=== PATIENT | male | born 1950 | race Caucasian/White ===

== ENCOUNTER 2017-11-29 11:08 | Inpatient (IN) | payer OTHER ==
[~2017-11-29] VITALS: Ht 182.9 cm; Wt 108.0 kg
[~2017-11-29 11:08] MED LIST: ACET325 PO; ALBU90OI INH; ALBU90OI61 INH; ASPI325 PO; ASPI81CH PO; AZIT500 PO; BUDE6HFA; Desyrel50 MG; FLUSAL5005 INH; Keflex500 MG PO; METF500 PO; METPRE4DP PO; Mucinex600 MG PO; PANT40 PO; PRED10 PO; Percocet 5-3251 EACH PO; Prednisone10 MG PO; Prednisone20 MG PO; STIOLTO RESPIMAT4 GM IH; TIOT18 IN; TIOT18 INH; Tessalon Perle100 MG PO; Ventolin Soln3 ML INH; Zithromax250 MG PO
[2017-11-29 11:32] LABS: BASOPHILS ABSOLUTE AUTO 0.06 K/mm3 (0.00-0.23); BASOPHILS PERCENT AUTO 0 % (0-2); EOSINOPHILS ABSOLUTE AUTO 0.47 K/mm3 (0.00-0.68); EOSINOPHILS PERCENT AUTO 3 % (0-6); Hematocrit 49.2 % (37.0-53.0); Hemoglobin 15.8 g/dL (13.5-17.5); IMMATURE GRAN ABSOLUTE AUTO 0.12 K/mm3 (0.00-0.10); IMMATURE GRAN PERCENT AUTO 1 % (0-1); LYMPHOCYTES ABSOLUTE AUTO 1.31 K/mm3 (0.84-5.20); LYMPHOCYTES PERCENT AUTO 8 % (21-46); MONOCYTES ABSOLUTE AUTO 1.23 K/mm3 (0.16-1.47); MONOCYTES PERCENT AUTO 7 % (4-13); Mean Corpuscular HGB 28.8 pg (26.0-34.0); Mean Corpuscular HGB Conc 32.1 g/dL (31.5-36.5); Mean Corpuscular Volume 90 fL (80-100); Mean Platelet Volume 9.8 fL (9.1-12.4); NEUTROPHILS ABSOLUTE AUTO 13.55 K/mm3 (1.96-9.15); NEUTROPHILS PERCENT AUTO 81 % (41-73); Platelet Count 199 K/mm3 (150-400); RDW Coefficient Variation 13.6 % (11.7-14.2); RDW Standard Deviation 45.3 fL (35.1-46.3); Red Blood Cell Count 5.48 M/mm3 (4.30-5.90); White Blood Cell Count 16.74 K/mm3 (4.00-11.30)
[2017-11-29 11:50] LABS: PCO2 Arterial 40.9 mmHg (35-45); PO2 Arterial 391 mmHg (80-100); pH Blood Arterial 7.43 (7.35-7.45)
[2017-11-29 11:51] LABS: Anion Gap 8 mmol/L (6-16); Blood Urea Nitrogen 14 mg/dL (8-24); Bun/Creatinine Ratio 11.6 (12.0-20.0); CO2, Blood 26 mmol/L (21-32); Calcium, Blood 8.4 mg/dL (8.5-10.1); Chloride, Blood 101 mmol/L (98-108); Creatinine, Blood 1.21 mg/dL (0.60-1.20); Glomerular Filtration Rate >60 (60-); Glucose, Blood 105 mg/dL (70-99); Potassium, Blood 4.2 mmol/L (3.5-5.5); Sodium, Blood 135 mmol/L (136-145); Troponin I <0.015 ng/mL (0.000-0.040)
[2017-11-29] MEDS ORDERED: BUDE6HFA INH (14:10)
[2017-11-29] MEDS ORDERED: TESTOSTERONE IM (14:11)
[2017-11-29] MEDS ORDERED: AMIT25 PO (14:54)
[2017-11-30 04:04] LABS: BASOPHILS ABSOLUTE AUTO 0.03 K/mm3 (0.00-0.23); BASOPHILS PERCENT AUTO 0 % (0-2); EOSINOPHILS PERCENT AUTO 0 % (0-6); Hematocrit 47.9 % (37.0-53.0); Hemoglobin 15.4 g/dL (13.5-17.5); IMMATURE GRAN PERCENT AUTO 1 % (0-1); LYMPHOCYTES ABSOLUTE AUTO 0.78 K/mm3 (0.84-5.20); LYMPHOCYTES PERCENT AUTO 6 % (21-46); MONOCYTES ABSOLUTE AUTO 0.28 K/mm3 (0.16-1.47); MONOCYTES PERCENT AUTO 2 % (4-13); Mean Corpuscular HGB 28.8 pg (26.0-34.0); Mean Corpuscular HGB Conc 32.2 g/dL (31.5-36.5); Mean Corpuscular Volume 90 fL (80-100); Mean Platelet Volume 10.2 fL (9.1-12.4); NEUTROPHILS PERCENT AUTO 91 % (41-73); Platelet Count 201 K/mm3 (150-400); RDW Coefficient Variation 13.4 % (11.7-14.2); RDW Standard Deviation 43.8 fL (35.1-46.3); Red Blood Cell Count 5.34 M/mm3 (4.30-5.90); White Blood Cell Count 13.59 K/mm3 (4.00-11.30)
[2017-11-30 04:19] LABS: Anion Gap 6 mmol/L (6-16); Blood Urea Nitrogen 22 mg/dL (8-24); Bun/Creatinine Ratio 19.8 (12.0-20.0); CO2, Blood 28 mmol/L (21-32); Calcium, Blood 9.1 mg/dL (8.5-10.1); Chloride, Blood 104 mmol/L (98-108); Creatinine, Blood 1.11 mg/dL (0.60-1.20); Glomerular Filtration Rate >60 (60-); Glucose, Blood 163 mg/dL (70-99); Potassium, Blood 4.9 mmol/L (3.5-5.5); Sodium, Blood 138 mmol/L (136-145)
[2017-11-30] MEDS ORDERED: GUAI600T33 PO (09:50)
[2017-11-30] MEDS ORDERED: DELTASONE20 MG PO (09:51)
[2017-11-30] MEDS ORDERED: METF500C PO (09:52)
[2017-11-30] MEDS ORDERED: Depo-Testos200 MG/ML IM (09:52)
[2017-11-30] MEDS ORDERED: ALBU2.5V5 INH (09:53)
== END 2017-11-30 10:31 | disposition home or self-care (01) | DRG 189 ==
LOC: ER 11:08 → PCU 12:02
PROVIDERS: Emergency Medicine; Internal Medicine
DX: J96.21 Acute and chronic respiratory failure with hypoxia (principal); E66.2 Morbid (severe) obesity with alveolar hypoventilation; J44.1 Chronic obstructive pulmonary disease with (acute) exacerbation; E11.9 Type 2 diabetes mellitus without complications; K21.9 Gastro-esophageal reflux disease without esophagitis; E29.1 Testicular hypofunction; J42 Unspecified chronic bronchitis; Z99.81 Dependence on supplemental oxygen; Z88.0 Allergy status to penicillin; Z79.84 Long term (current) use of oral hypoglycemic drugs; Z79.82 Long term (current) use of aspirin; Z79.52 Long term (current) use of systemic steroids; Z79.899 Other long term (current) drug therapy; Z87.891 Personal history of nicotine dependence; Z68.31 Body mass index [BMI] 31.0-31.9, adult
CPT/HCPCS: 36415; 36600; 71045; 80048; 82803; 82947; 83605; 83880; 84145; 84484; 85025; 93005; 93010; J0456; J0696; J1650; J2930; J7030; J7050; Q0163

== ENCOUNTER → 2018-02-25 | Outpatient (CLI) | payer OTHER ==
[~2018-02-25] MED LIST changes: +ALBU2.5V5 INH; +AMIT25 PO; +BUDE6HFA INH; +DELTASONE20 MG PO; +Depo-Testos200 MG/ML IM; +GUAI600T33 PO; +METF500C PO; +TESTOSTERONE IM
== END | disposition home or self-care (01) ==
LOC: PLD 07:49 → LAB SHORT 07:49
DX: C44.529 Squamous cell carcinoma of skin of other part of trunk (principal)
CPT/HCPCS: 88305

== ENCOUNTER 2018-03-01 17:28 | Emergency (ER) | payer OTHER ==
[~2018-03-01] VITALS: Ht 182.9 cm; Wt 108.4 kg
[2018-03-01 18:02] LABS: BASOPHILS ABSOLUTE AUTO 0.06 K/mm3 (0.00-0.23); BASOPHILS PERCENT AUTO 1 % (0-2); EOSINOPHILS ABSOLUTE AUTO 0.89 K/mm3 (0.00-0.68); EOSINOPHILS PERCENT AUTO 10 % (0-6); Hematocrit 53.2 % (37.0-53.0); Hemoglobin 17.6 g/dL (13.5-17.5); IMMATURE GRAN ABSOLUTE AUTO 0.03 K/mm3 (0.00-0.10); IMMATURE GRAN PERCENT AUTO 0 % (0-1); LYMPHOCYTES ABSOLUTE AUTO 1.91 K/mm3 (0.84-5.20); LYMPHOCYTES PERCENT AUTO 21 % (21-46); MONOCYTES ABSOLUTE AUTO 0.78 K/mm3 (0.16-1.47); MONOCYTES PERCENT AUTO 9 % (4-13); Mean Corpuscular HGB 29.1 pg (26.0-34.0); Mean Corpuscular HGB Conc 33.1 g/dL (31.5-36.5); Mean Corpuscular Volume 88 fL (80-100); Mean Platelet Volume 9.3 fL (9.1-12.4); NEUTROPHILS ABSOLUTE AUTO 5.32 K/mm3 (1.96-9.15); NEUTROPHILS PERCENT AUTO 59 % (41-73); Platelet Count 262 K/mm3 (150-400); RDW Coefficient Variation 15.3 % (11.7-14.2); RDW Standard Deviation 49.8 fL (35.1-46.3); Red Blood Cell Count 6.05 M/mm3 (4.30-5.90); White Blood Cell Count 8.99 K/mm3 (4.00-11.30)
[2018-03-01 18:23] LABS: Alanine Aminotransfer (ALT/SGP 37 U/L (12-78); Albumin, Blood 3.8 g/dL (3.4-5.0); Albumin/Globulin Ratio 0.9 (0.8-1.8); Alk Phos 102 U/L (50-136); Anion Gap 7 mmol/L (6-16); Aspartate Aminotrans (AST/SGOT 33 U/L (12-37); Bilirubin, Total 0.4 mg/dL (0.1-1.0); Blood Urea Nitrogen 19 mg/dL (8-24); Bun/Creatinine Ratio 15.2 (12.0-20.0); CO2, Blood 28 mmol/L (21-32); Calcium, Blood 8.7 mg/dL (8.5-10.1); Chloride, Blood 103 mmol/L (98-108); Creatinine, Blood 1.25 mg/dL (0.60-1.20); Globulin, Blood 4.2 g/dL (2.2-4.0); Glomerular Filtration Rate >60 (60-); Glucose, Blood 113 mg/dL (70-99); Potassium, Blood 4.2 mmol/L (3.5-5.5); Sodium, Blood 138 mmol/L (136-145); Troponin I <0.015 ng/mL (0.000-0.040)
[2018-03-01] MEDS ORDERED: Zithromax250 MG PO ×2 (20:12→20:30)
[2018-03-01] MEDS ORDERED: Prednisone20 MG PO ×2 (20:12→20:30)
== END 2018-03-01 20:31 | disposition home or self-care (01) ==
LOC: ER 17:28
PROVIDERS: Physician Assistant
DX: J44.1 Chronic obstructive pulmonary disease with (acute) exacerbation (principal); Z87.891 Personal history of nicotine dependence
CPT/HCPCS: 36415; 71046; 80053; 83880; 84484; 85025; 94644; 96374; 99285-25; J2930

== ENCOUNTER 2018-07-04 15:18 | Emergency (ER) | payer OTHER ==
[~2018-07-04] VITALS: Ht 180.3 cm; Wt 111.6 kg
[~2018-07-04 15:18] MED LIST changes: -ALBU2.5V5 INH; +ALBU3IS INH; +ALBU90OI6 INH; -AMIT25 PO; +Acetaminophen1 EAC2 PO; -Depo-Testos200 MG/ML IM; +PRED20 PO
[2018-07-04 16:12] LABS: BASOPHILS ABSOLUTE AUTO 0.03 K/mm3 (0.00-0.23); BASOPHILS PERCENT AUTO 1 % (0-2); EOSINOPHILS ABSOLUTE AUTO 0.79 K/mm3 (0.00-0.68); EOSINOPHILS PERCENT AUTO 12 % (0-6); Hematocrit 49.5 % (37.0-53.0); Hemoglobin 15.7 g/dL (13.5-17.5); IMMATURE GRAN ABSOLUTE AUTO 0.02 K/mm3 (0.00-0.10); IMMATURE GRAN PERCENT AUTO 0 % (0-1); LYMPHOCYTES ABSOLUTE AUTO 1.87 K/mm3 (0.84-5.20); LYMPHOCYTES PERCENT AUTO 29 % (21-46); MONOCYTES ABSOLUTE AUTO 0.67 K/mm3 (0.16-1.47); MONOCYTES PERCENT AUTO 11 % (4-13); Mean Corpuscular HGB 28.9 pg (26.0-34.0); Mean Corpuscular HGB Conc 31.7 g/dL (31.5-36.5); Mean Corpuscular Volume 91 fL (80-100); Mean Platelet Volume 9.4 fL (9.1-12.4); NEUTROPHILS ABSOLUTE AUTO 3.01 K/mm3 (1.96-9.15); NEUTROPHILS PERCENT AUTO 47 % (41-73); Platelet Count 209 K/mm3 (150-400); RDW Coefficient Variation 14.7 % (11.7-14.2); RDW Standard Deviation 49.3 fL (35.1-46.3); Red Blood Cell Count 5.43 M/mm3 (4.30-5.90); White Blood Cell Count 6.39 K/mm3 (4.00-11.30)
[2018-07-04 16:27] LABS: Alanine Aminotransfer (ALT/SGP 33 U/L (12-78); Albumin, Blood 3.6 g/dL (3.4-5.0); Albumin/Globulin Ratio 0.9 (0.8-1.8); Alk Phos 103 U/L (50-136); Anion Gap 5 mmol/L (6-16); Aspartate Aminotrans (AST/SGOT 16 U/L (12-37); Bilirubin, Total 0.3 mg/dL (0.1-1.0); Blood Urea Nitrogen 15 mg/dL (8-24); Bun/Creatinine Ratio 13.4 (12.0-20.0); CO2, Blood 31 mmol/L (21-32); Calcium, Blood 9.6 mg/dL (8.5-10.1); Chloride, Blood 103 mmol/L (98-108); Creatinine, Blood 1.12 mg/dL (0.60-1.20); Globulin, Blood 3.9 g/dL (2.2-4.0); Glomerular Filtration Rate >60 (60-); Glucose, Blood 121 mg/dL (70-99); Potassium, Blood 4.1 mmol/L (3.5-5.5); Sodium, Blood 139 mmol/L (136-145); Total Protein, Blood 7.5 g/dL (6.4-8.2); Troponin I <0.015 ng/mL (0.000-0.040)
[2018-07-04] MEDS ORDERED: ASPI81CH PO (16:37)
[2018-07-04] MEDS ORDERED: ATOR80 PO (16:37)
[2018-07-04] MEDS ORDERED: BUDE10.22 (16:39)
[2018-07-04] MEDS ORDERED: CALCIPOTRIENE60 G1 (16:40)
[2018-07-04] MEDS ORDERED: CHOL10002 PO (16:42)
[2018-07-04] MEDS ORDERED: Thera Tears1 EAC1 (16:42)
[2018-07-04] MEDS ORDERED: CLOBETASOL PRO0.5 GM (16:43)
[2018-07-04] MEDS ORDERED: Colace100 MG PO (16:44)
[2018-07-04] MEDS ORDERED: CYCL10 PO (16:44)
[2018-07-04] MEDS ORDERED: Advair Hfa 230-12 GM (16:45)
[2018-07-04] MEDS ORDERED: Glucose4 GM (16:45)
[2018-07-04] MEDS ORDERED: METF500C PO (16:46)
[2018-07-04] MEDS ORDERED: LOSA50 PO (16:46)
[2018-07-04] MEDS ORDERED: Novolog Fl100 UNIT/1 (16:46)
[2018-07-04] MEDS ORDERED: NAPR500 PO (16:47)
[2018-07-04] MEDS ORDERED: Omeprazole20 M1 PO (16:47)
[2018-07-04] MEDS ORDERED: Hair, Skin & N1 EACH (16:47)
[2018-07-04] MEDS ORDERED: QUET100 PO (16:48)
[2018-07-04] MEDS ORDERED: TAMS.4ER PO (16:48)
[2018-07-04] MEDS ORDERED: SALS750 PO (16:48)
[2018-07-04] MEDS ORDERED: Ventolin/Prove6.7 GM (16:50)
[2018-07-04] MEDS ORDERED: AMIT25 PO (17:08)
[2018-07-04] MEDS ORDERED: TRELEGY ELLIPT1 EACH INH (17:08)
[2018-07-04] MEDS ORDERED: Depo-Testos200 MG/ML IM (17:08)
[2018-07-04] MEDS ORDERED: ALBU2.5V5 INH (17:08)
[2018-07-04] MEDS ORDERED: AMLO10 PO (17:09)
[2018-07-04] MEDS ORDERED: ROBITUSSIN100 MG/5 M PO (17:09)
[2018-07-04] MEDS ORDERED: Lyrica50 MG PO (17:09)
[2018-07-04] MEDS ORDERED: PRED10 PO (17:09)
[2018-07-04] MEDS ORDERED: ALBU90OI INH (17:09)
[2018-07-04] MEDS ORDERED: GABA300 PO (17:10)
[2018-07-04] MEDS ORDERED: Prednisone20 MG PO (19:13)
[2018-07-04] MEDS ORDERED: Zithromax250 MG PO (19:13)
== END 2018-07-04 19:40 | disposition home or self-care (01) ==
LOC: ER 15:18
PROVIDERS: Physician Assistant
DX: J44.1 Chronic obstructive pulmonary disease with (acute) exacerbation (principal); Z88.0 Allergy status to penicillin; Z87.891 Personal history of nicotine dependence
CPT/HCPCS: 36415; 71046; 80053; 83880; 84484; 85025; 93005; 93010; 94644; 96365; 96375; 99285-25; J2930; J3475; J7030

== ENCOUNTER 2018-07-15 16:50 | Inpatient (IN) | payer OTHER ==
[~2018-07-15] VITALS: Ht 180.3 cm; Wt 110.3 kg
[~2018-07-15 16:50] MED LIST changes: +ALBU2.5V5 INH; +AMIT25 PO; +AMLO10 PO; +ATOR80 PO; +Advair Hfa 230-12 GM; +BUDE10.22; +CALCIPOTRIENE60 G1; +CHOL10002 PO; +CLOBETASOL PRO0.5 GM; +CYCL10 PO; +Colace100 MG PO; +Depo-Testos200 MG/ML IM; +GABA300 PO; +Glucose4 GM; +Hair, Skin & N1 EACH; +LOSA50 PO; +Lyrica50 MG PO; +NAPR500 PO; +Novolog Fl100 UNIT/1; +Omeprazole20 M1 PO; +QUET100 PO; +ROBITUSSIN100 MG/5 M PO; +SALS750 PO; +TAMS.4ER PO; +TRELEGY ELLIPT1 EACH INH; +Thera Tears1 EAC1; +Ventolin/Prove6.7 GM
[2018-07-15 17:49] LABS: BASOPHILS ABSOLUTE AUTO 0.07 K/mm3 (0.00-0.23); BASOPHILS PERCENT AUTO 1 % (0-2); EOSINOPHILS PERCENT AUTO 9 % (0-6); Hematocrit 47.7 % (37.0-53.0); Hemoglobin 15.1 g/dL (13.5-17.5); IMMATURE GRAN ABSOLUTE AUTO 0.07 K/mm3 (0.00-0.10); IMMATURE GRAN PERCENT AUTO 1 % (0-1); LYMPHOCYTES ABSOLUTE AUTO 2.28 K/mm3 (0.84-5.20); LYMPHOCYTES PERCENT AUTO 28 % (21-46); MONOCYTES PERCENT AUTO 12 % (4-13); Mean Corpuscular HGB 28.9 pg (26.0-34.0); Mean Corpuscular HGB Conc 31.7 g/dL (31.5-36.5); Mean Corpuscular Volume 91 fL (80-100); Mean Platelet Volume 9.1 fL (9.1-12.4); NEUTROPHILS ABSOLUTE AUTO 3.99 K/mm3 (1.96-9.15); NEUTROPHILS PERCENT AUTO 49 % (41-73); Platelet Count 218 K/mm3 (150-400); RDW Coefficient Variation 14.8 % (11.7-14.2); RDW Standard Deviation 50.4 fL (35.1-46.3); Red Blood Cell Count 5.23 M/mm3 (4.30-5.90); White Blood Cell Count 8.11 K/mm3 (4.00-11.30)
[2018-07-15 18:10] LABS: Alanine Aminotransfer (ALT/SGP 28 U/L (12-78); Albumin, Blood 3.3 g/dL (3.4-5.0); Albumin/Globulin Ratio 0.9 (0.8-1.8); Alk Phos 99 U/L (50-136); Anion Gap 4 mmol/L (6-16); Aspartate Aminotrans (AST/SGOT 12 U/L (12-37); Bilirubin, Total 0.2 mg/dL (0.1-1.0); Blood Urea Nitrogen 15 mg/dL (8-24); Bun/Creatinine Ratio 12.9 (12.0-20.0); CO2, Blood 32 mmol/L (21-32); Calcium, Blood 9.2 mg/dL (8.5-10.1); Chloride, Blood 102 mmol/L (98-108); Creatinine, Blood 1.16 mg/dL (0.60-1.20); Globulin, Blood 3.7 g/dL (2.2-4.0); Glomerular Filtration Rate >60 (60-); Glucose, Blood 132 mg/dL (70-99); Potassium, Blood 3.8 mmol/L (3.5-5.5); Sodium, Blood 138 mmol/L (136-145); Troponin I <0.015 ng/mL (0.000-0.040)
[2018-07-15 19:00] LABS: PCO2 Arterial 59.9 mmHg (35-45); PO2 Arterial 98.9 mmHg (80-100); pH Blood Arterial 7.38 (7.35-7.45)
[2018-07-16 00:20] LABS: Adenovirus Not Detected (NOT DETECT); Bordetella pertussis Not Detected (NOT DETECT); Chlamydophila pneumoniae Not Detected (NOT DETECT); Coronavirus 229E Not Detected (NOT DETECT); Coronavirus HKU1 Not Detected (NOT DETECT); Coronavirus NL63 Not Detected (NOT DETECT); Coronavirus OC43 Not Detected (NOT DETECT); Human Metapneumovirus Not Detected (NOT DETECT); Human Rhinovirus/Enterovirus Not Detected (NOT DETECT); Influenza A/2009-H1 Not Detected (NOT DETECT); Influenza A/H1 Not Detected (NOT DETECT); Influenza A/H3 Not Detected (NOT DETECT); Influenza B Not Detected (NOT DETECT); Mycoplasma pneumoniae Not Detected (NOT DETECT); Parainfluenza Virus 1 Not Detected (NOT DETECT); Parainfluenza Virus 2 Not Detected (NOT DETECT); Parainfluenza Virus 3 Not Detected (NOT DETECT); Parainfluenza Virus 4 Not Detected (NOT DETECT); Respiratory Syncytial Virus Not Detected (NOT DETECT)
[2018-07-16 01:29] LABS: Influenza A Not Detected (NOT DETECT)
[2018-07-16 04:43] LABS: Hematocrit 47.1 % (37.0-53.0); Hemoglobin 14.8 g/dL (13.5-17.5); Mean Corpuscular HGB 28.4 pg (26.0-34.0); Mean Corpuscular HGB Conc 31.4 g/dL (31.5-36.5); Mean Corpuscular Volume 90 fL (80-100); Mean Platelet Volume 9.1 fL (9.1-12.4); Platelet Count 198 K/mm3 (150-400); RDW Coefficient Variation 14.6 % (11.7-14.2); RDW Standard Deviation 48.7 fL (35.1-46.3); Red Blood Cell Count 5.21 M/mm3 (4.30-5.90); White Blood Cell Count 7.97 K/mm3 (4.00-11.30)
[2018-07-16 05:00] LABS: Anion Gap 5 mmol/L (6-16); Blood Urea Nitrogen 21 mg/dL (8-24); Bun/Creatinine Ratio 21.3 (12.0-20.0); CO2, Blood 30 mmol/L (21-32); Calcium, Blood 8.9 mg/dL (8.5-10.1); Chloride, Blood 103 mmol/L (98-108); Creatinine, Blood 0.99 mg/dL (0.60-1.20); Glomerular Filtration Rate >60 (60-); Glucose, Blood 229 mg/dL (70-99); Potassium, Blood 4.8 mmol/L (3.5-5.5); Sodium, Blood 138 mmol/L (136-145)
--- NOTE | 2018-07-16 06:05 | NUR ---
SHIFT SUMMARY PT ADMITTED FOR COPD EXACERBATION. PT IS ON HIS HOME DOSE OF 6L VIA NC, OR 6L BLEED IN TO BIPAP. HE WORE THE BIPAP OVERNIGHT WITHOUT ISSUE AND SWITCHED BACK TO THE NC THIS AM WHEN HE WOKE UP. CONT BIOX IN PLACE. PT SATTING 91-94%. NO FURTHER CHANGES. WILL CTM UNTIL PASS TO NEXT SHIFT.
[2018-07-16] MEDS ORDERED: AZIT250 PO (10:51)
[2018-07-16] MEDS ORDERED: PRED20 PO (11:06)
--- NOTE | 2018-07-16 11:38 | NUR ---
DISCHARGE PT EDUCATED ON AND RECEIVED PRINTED DC INSTRUCTIONS AND VERBALIZED AN UNDERSTANDING. IV DC'D. RX FAXED TO [place] [facility] PER PT REQUEST. [facility] F/U SCHEDULED FOR HOME. PERSONAL BELONGINGS RETURNED TO PT. PT WAITING FOR TRANSPORTATION.
== END 2018-07-16 12:10 | disposition home or self-care (01) | DRG 191 ==
LOC: ER 16:50 → ERHOLD 20:04 → SURS 20:04
PROVIDERS: Emergency Medicine; Nurse Practitioner Acute Care; Physician Assistant; ADMIT Internal Medicine
DX: J44.1 Chronic obstructive pulmonary disease with (acute) exacerbation (principal); J96.11 Chronic respiratory failure with hypoxia; G47.33 Obstructive sleep apnea (adult) (pediatric); K21.9 Gastro-esophageal reflux disease without esophagitis; G62.9 Polyneuropathy, unspecified; Z66 Do not resuscitate; Z99.81 Dependence on supplemental oxygen; Z88.0 Allergy status to penicillin; Z87.891 Personal history of nicotine dependence; Z79.899 Other long term (current) drug therapy
CPT/HCPCS: 36415; 36600; 71046; 80048; 80053; 82803; 83735; 84484; 85025; 85027; 87486; 87581; 87633; 87798; 93005; 93010; 94640; 94644; 94660; 94667; 94762; 96374; 99285-25; J0456; J1650; J2930; J7050

== ENCOUNTER 2018-08-12 13:41 | Observation (INO) | payer OTHER ==
[~2018-08-12] VITALS: Ht 180.3 cm; Wt 114.8 kg
[~2018-08-12 13:41] MED LIST changes: +AZIT250 PO
[2018-08-12 14:48] LABS: BASOPHILS ABSOLUTE AUTO 0.03 K/mm3 (0.00-0.23); BASOPHILS PERCENT AUTO 0 % (0-2); EOSINOPHILS ABSOLUTE AUTO 0.63 K/mm3 (0.00-0.68); EOSINOPHILS PERCENT AUTO 9 % (0-6); Hematocrit 45.4 % (37.0-53.0); Hemoglobin 14.7 g/dL (13.5-17.5); IMMATURE GRAN ABSOLUTE AUTO 0.04 K/mm3 (0.00-0.10); IMMATURE GRAN PERCENT AUTO 1 % (0-1); LYMPHOCYTES ABSOLUTE AUTO 1.52 K/mm3 (0.84-5.20); LYMPHOCYTES PERCENT AUTO 21 % (21-46); MONOCYTES ABSOLUTE AUTO 0.51 K/mm3 (0.16-1.47); MONOCYTES PERCENT AUTO 7 % (4-13); Mean Corpuscular HGB Conc 32.4 g/dL (31.5-36.5); Mean Corpuscular Volume 93 fL (80-100); Mean Platelet Volume 9.3 fL (9.1-12.4); NEUTROPHILS ABSOLUTE AUTO 4.42 K/mm3 (1.96-9.15); NEUTROPHILS PERCENT AUTO 62 % (41-73); Platelet Count 184 K/mm3 (150-400); RDW Coefficient Variation 15.2 % (11.7-14.2); RDW Standard Deviation 52.3 fL (35.1-46.3); White Blood Cell Count 7.15 K/mm3 (4.00-11.30)
[2018-08-12 15:11] LABS: Alanine Aminotransfer (ALT/SGP 34 U/L (12-78); Albumin, Blood 3.4 g/dL (3.4-5.0); Alk Phos 85 U/L (50-136); Anion Gap 4 mmol/L (6-16); Aspartate Aminotrans (AST/SGOT 19 U/L (12-37); Bilirubin, Total 0.5 mg/dL (0.1-1.0); Blood Urea Nitrogen 12 mg/dL (8-24); Bun/Creatinine Ratio 10.4 (12.0-20.0); CO2, Blood 31 mmol/L (21-32); Calcium, Blood 8.5 mg/dL (8.5-10.1); Chloride, Blood 105 mmol/L (98-108); Creatinine, Blood 1.15 mg/dL (0.60-1.20); Globulin, Blood 3.4 g/dL (2.2-4.0); Glomerular Filtration Rate >60 (60-); Glucose, Blood 131 mg/dL (70-99); Potassium, Blood 4.6 mmol/L (3.5-5.5); Sodium, Blood 140 mmol/L (136-145); Total Protein, Blood 6.8 g/dL (6.4-8.2); Troponin I <0.015 ng/mL (0.000-0.040)
[2018-08-12] MEDS ORDERED: AZIT250 PO (16:12)
[2018-08-12] MEDS ORDERED: ATOR20 PO (16:12)
--- NOTE | 2018-08-12 20:10 | NUR ---
ADMIT RECEIVED FROM ER VIA RSAN JOSE. AWAKE AND ALERT. ORIENTED X3. AMBULATES FROM GURNEY TO BED WITHOUT DIFFICULTY. RESPIRATIONS EVEN AND UNLABORED. O2 AT 2LNC. C/O MILD SOB WITH EXERTION. MONITOR SHOWS NSR, RATE 80-90s. BP STABLE. BLE EDEMA NOTED. SEE ADMIT ASSESSMENT FOR FULL ASSESSMENT.
--- NOTE | 2018-08-13 06:28 | NUR ---
SHIFT SUMMARY NO ACUTE CHANGES DURING NOC. SLEPT WHEN UNDISTURBED. REMAINS ON 2L NC. USED CPAP INTERMITTENTLY WHEN SLEEPING. RESPIRATIONS EVEN AND UNLABORED. VSS. VOIDING WITHOUT DIFFICULTY. DENIES C/O PAIN OR OTHER DISCOMFORT. WILL REPORT TO DAY SHIFT RN WHEN AVAILABLE.
--- NOTE | 2018-08-13 08:20 | NUR ---
ASSUMED CARE PT. ALERT AND ORIENTED THIS AM, INDEPENDENT IN ROOM. PT DENIES PAIN. UP IN ROOM ADLIB. CURRENTLY ON 2LNC, SPO2 95%. PT REPORTS NOT WEARING O2 WHEN "OUT AND ABOUT" PLANS TO FOLLOW UP WITH [facility] UPON DISCHARGE. PT. TO BE DISCHARGED HOME TODAY. COPD HAND VIOLIN MAKER CONTACTED. PT. VSS AT THIS TIME. CALL LIGHT IN REACH, PT CALLING FOR A RIDE HOME. IV DISCONTINUED.
[2018-08-13] MEDS ORDERED: ATOR20 PO (08:32)
[2018-08-13] MEDS ORDERED: AZIT500 PO (08:32)
[2018-08-13] MEDS ORDERED: ALBU3IS INH (08:33)
[2018-08-13] MEDS ORDERED: PANT20 PO (08:34)
[2018-08-13] MEDS ORDERED: PRED20 PO (08:36)
--- NOTE | 2018-08-13 08:39 | NUR ---
PRESCRIPTIONS CALLED TO [facility]HEED. GER.
--- NOTE | 2018-08-13 09:13 | NUR ---
PT DISCHARGED TO HOME. INSTRUCTIONS REVIEWED; COPD RT DISCUSSED DISCHARGE PLAN WITH PT. NEW MEDICATIONS REVIEWED AND CALLED IN TO [facility]. PT MEDICATIONS RETURNED FROM PHARMACY. PT. DRESSED SELF AND WAS TAKEN TO [employer] CAR FOR RIDE HOME VIA WHEELCHAIR. VSS UPON DISCHARGE.
== END 2018-08-13 09:19 | disposition home or self-care (01) ==
LOC: ER 13:41 → ERHOLD 13:42 → ICUW 20:02
PROVIDERS: Physician Assistant; ADMIT Internal Medicine
DX: J96.21 Acute and chronic respiratory failure with hypoxia (principal); J96.22 Acute and chronic respiratory failure with hypercapnia; J44.1 Chronic obstructive pulmonary disease with (acute) exacerbation; I10 Essential (primary) hypertension; G47.33 Obstructive sleep apnea (adult) (pediatric); K21.9 Gastro-esophageal reflux disease without esophagitis; E66.9 Obesity, unspecified; Z87.891 Personal history of nicotine dependence; Z99.81 Dependence on supplemental oxygen; Z88.0 Allergy status to penicillin; Z79.899 Other long term (current) drug therapy; Z79.2 Long term (current) use of antibiotics; Z79.01 Long term (current) use of anticoagulants; Z68.34 Body mass index [BMI] 34.0-34.9, adult
CPT/HCPCS: 36415; 71046; 80053; 83880; 84484; 85025; 90686; 93005; 93010; 94640; 94644; 94660; 96372; 96374; 96376; 99285-25; G0378; J1650; J2930

== ENCOUNTER 2018-09-14 12:43 | Emergency (ER) | payer OTHER ==
[~2018-09-14] VITALS: Ht 182.9 cm; Wt 129.7 kg
[~2018-09-14 12:43] MED LIST changes: +ATOR20 PO; +PANT20 PO
[2018-09-14 13:22] LABS: BASOPHILS ABSOLUTE AUTO 0.05 K/mm3 (0.00-0.23); BASOPHILS PERCENT AUTO 0 % (0-2); EOSINOPHILS ABSOLUTE AUTO 0.42 K/mm3 (0.00-0.68); EOSINOPHILS PERCENT AUTO 4 % (0-6); Hematocrit 44.2 % (37.0-53.0); Hemoglobin 14.2 g/dL (13.5-17.5); IMMATURE GRAN ABSOLUTE AUTO 0.06 K/mm3 (0.00-0.10); IMMATURE GRAN PERCENT AUTO 1 % (0-1); LYMPHOCYTES ABSOLUTE AUTO 1.48 K/mm3 (0.84-5.20); LYMPHOCYTES PERCENT AUTO 12 % (21-46); MONOCYTES ABSOLUTE AUTO 0.91 K/mm3 (0.16-1.47); MONOCYTES PERCENT AUTO 8 % (4-13); Mean Corpuscular HGB Conc 32.1 g/dL (31.5-36.5); Mean Corpuscular Volume 93 fL (80-100); Mean Platelet Volume 9.9 fL (9.1-12.4); NEUTROPHILS ABSOLUTE AUTO 9.11 K/mm3 (1.96-9.15); NEUTROPHILS PERCENT AUTO 76 % (41-73); Platelet Count 170 K/mm3 (150-400); RDW Coefficient Variation 15.1 % (11.7-14.2); RDW Standard Deviation 52.2 fL (35.1-46.3); Red Blood Cell Count 4.74 M/mm3 (4.30-5.90); White Blood Cell Count 12.03 K/mm3 (4.00-11.30)
[2018-09-14 13:41] LABS: Alanine Aminotransfer (ALT/SGP 27 U/L (12-78); Albumin, Blood 3.3 g/dL (3.4-5.0); Alk Phos 105 U/L (50-136); Anion Gap 4 mmol/L (6-16); Aspartate Aminotrans (AST/SGOT 17 U/L (12-37); Bilirubin, Total 0.4 mg/dL (0.1-1.0); Blood Urea Nitrogen 10 mg/dL (8-24); Bun/Creatinine Ratio 9.9 (12.0-20.0); CO2, Blood 32 mmol/L (21-32); Calcium, Blood 8.6 mg/dL (8.5-10.1); Chloride, Blood 105 mmol/L (98-108); Creatinine, Blood 1.01 mg/dL (0.60-1.20); Globulin, Blood 3.2 g/dL (2.2-4.0); Glomerular Filtration Rate >60 (60-); Glucose, Blood 188 mg/dL (70-99); Sodium, Blood 141 mmol/L (136-145); Total Protein, Blood 6.5 g/dL (6.4-8.2)
[2018-09-14] MEDS ORDERED: Prednisone20 MG PO (15:18)
== END 2018-09-14 16:22 | disposition home or self-care (01) ==
LOC: ER 12:43
PROVIDERS: Physician Assistant
DX: J44.1 Chronic obstructive pulmonary disease with (acute) exacerbation (principal); K21.9 Gastro-esophageal reflux disease without esophagitis; E66.9 Obesity, unspecified; Z88.0 Allergy status to penicillin; Z79.899 Other long term (current) drug therapy; Z87.891 Personal history of nicotine dependence
CPT/HCPCS: 36415; 71046; 80053; 83605; 85025; 93005; 93010; 94644; 96374; 99284-25; J2930

== ENCOUNTER 2018-11-07 10:15 | Emergency (ER) | payer OTHER ==
[~2018-11-07] VITALS: Ht 182.9 cm; Wt 136.5 kg
[2018-11-07 10:52] LABS: BASOPHILS ABSOLUTE AUTO 0.05 K/mm3 (0.00-0.23); BASOPHILS PERCENT AUTO 0 % (0-2); EOSINOPHILS ABSOLUTE AUTO 0.28 K/mm3 (0.00-0.68); EOSINOPHILS PERCENT AUTO 2 % (0-6); Hematocrit 44.4 % (37.0-53.0); Hemoglobin 14.2 g/dL (13.5-17.5); IMMATURE GRAN ABSOLUTE AUTO 0.08 K/mm3 (0.00-0.10); IMMATURE GRAN PERCENT AUTO 1 % (0-1); LYMPHOCYTES ABSOLUTE AUTO 0.62 K/mm3 (0.84-5.20); LYMPHOCYTES PERCENT AUTO 4 % (21-46); MONOCYTES ABSOLUTE AUTO 0.62 K/mm3 (0.16-1.47); MONOCYTES PERCENT AUTO 4 % (4-13); Mean Corpuscular HGB 30.1 pg (26.0-34.0); Mean Corpuscular Volume 94 fL (80-100); Mean Platelet Volume 9.9 fL (9.1-12.4); NEUTROPHILS ABSOLUTE AUTO 12.82 K/mm3 (1.96-9.15); NEUTROPHILS PERCENT AUTO 89 % (41-73); Platelet Count 176 K/mm3 (150-400); RDW Coefficient Variation 13.9 % (11.7-14.2); Red Blood Cell Count 4.72 M/mm3 (4.30-5.90); White Blood Cell Count 14.47 K/mm3 (4.00-11.30)
[2018-11-07 11:15] LABS: Alanine Aminotransfer (ALT/SGP 31 U/L (12-78); Albumin, Blood 3.6 g/dL (3.4-5.0); Albumin/Globulin Ratio 1.1 (0.8-1.8); Alk Phos 100 U/L (50-136); Anion Gap 4 mmol/L (6-16); Aspartate Aminotrans (AST/SGOT 18 U/L (12-37); Bilirubin, Total 0.4 mg/dL (0.1-1.0); Blood Urea Nitrogen 16 mg/dL (8-24); Bun/Creatinine Ratio 14.5 (12.0-20.0); CO2, Blood 28 mmol/L (21-32); Calcium, Blood 8.9 mg/dL (8.5-10.1); Chloride, Blood 108 mmol/L (98-108); Globulin, Blood 3.4 g/dL (2.2-4.0); Glomerular Filtration Rate >60 (60-); Glucose, Blood 122 mg/dL (70-99); Potassium, Blood 4.7 mmol/L (3.5-5.5); Sodium, Blood 140 mmol/L (136-145); Troponin I <0.015 ng/mL (0.000-0.040)
[2018-11-07] MEDS ORDERED: Prednisone20 MG PO (11:44)
== END 2018-11-07 12:46 | disposition home or self-care (01) ==
LOC: ER 10:15
PROVIDERS: Emergency Medicine
DX: J44.1 Chronic obstructive pulmonary disease with (acute) exacerbation (principal); Z88.0 Allergy status to penicillin; Z79.899 Other long term (current) drug therapy; Z79.52 Long term (current) use of systemic steroids
CPT/HCPCS: 36415; 71046; 80053; 84484; 85025; 93005; 93010; 94640; 96374; 99284-25; J2930

== ENCOUNTER → 2018-11-25 | Outpatient (CLI) | payer OTHER ==
[2018-11-25 16:47] LABS: BASOPHILS ABSOLUTE AUTO 0.05 K/mm3 (0.00-0.23); BASOPHILS PERCENT AUTO 0 % (0-2); EOSINOPHILS ABSOLUTE AUTO 0.49 K/mm3 (0.00-0.68); EOSINOPHILS PERCENT AUTO 4 % (0-6); Hematocrit 45.6 % (37.0-53.0); Hemoglobin 14.8 g/dL (13.5-17.5); IMMATURE GRAN ABSOLUTE AUTO 0.12 K/mm3 (0.00-0.10); IMMATURE GRAN PERCENT AUTO 1 % (0-1); LYMPHOCYTES ABSOLUTE AUTO 1.32 K/mm3 (0.84-5.20); LYMPHOCYTES PERCENT AUTO 10 % (21-46); MONOCYTES ABSOLUTE AUTO 0.95 K/mm3 (0.16-1.47); MONOCYTES PERCENT AUTO 8 % (4-13); Mean Corpuscular HGB Conc 32.5 g/dL (31.5-36.5); Mean Corpuscular Volume 92 fL (80-100); Mean Platelet Volume 9.9 fL (9.1-12.4); NEUTROPHILS ABSOLUTE AUTO 9.75 K/mm3 (1.96-9.15); NEUTROPHILS PERCENT AUTO 77 % (41-73); Platelet Count 215 K/mm3 (150-400); RDW Coefficient Variation 14.5 % (11.7-14.2); RDW Standard Deviation 48.9 fL (35.1-46.3); Red Blood Cell Count 4.94 M/mm3 (4.30-5.90); White Blood Cell Count 12.68 K/mm3 (4.00-11.30)
[2018-11-25 17:01] LABS: Alanine Aminotransfer (ALT/SGP 37 U/L (12-78); Albumin, Blood 3.7 g/dL (3.4-5.0); Alk Phos 108 U/L (40-126); Anion Gap 4 mmol/L (6-16); Aspartate Aminotrans (AST/SGOT 21 U/L (12-37); Bilirubin, Total 0.3 mg/dL (0.1-1.0); Blood Urea Nitrogen 14 mg/dL (8-24); Bun/Creatinine Ratio 10.7 (12.0-20.0); CO2, Blood 34 mmol/L (21-32); Calcium, Blood 9.1 mg/dL (8.5-10.1); Chloride, Blood 102 mmol/L (98-108); Creatinine, Blood 1.31 mg/dL (0.60-1.20); Globulin, Blood 3.8 g/dL (2.2-4.0); Glomerular Filtration Rate 55 (60-); Glucose, Blood 126 mg/dL (70-99); Potassium, Blood 4.9 mmol/L (3.5-5.5); Sodium, Blood 140 mmol/L (136-145); Total Protein, Blood 7.5 g/dL (6.4-8.2)
[2018-11-25 17:02] LABS: Troponin I <0.017 ng/mL (0.000-0.040)
== END | disposition home or self-care (01) ==
LOC: LAB EV 16:40 → LAB SHORT 16:40
PROVIDERS: Family Medicine
DX: J44.9 Chronic obstructive pulmonary disease, unspecified (principal)
CPT/HCPCS: 80053; 83880; 84484; 85025

== ENCOUNTER → 2018-12-02 | Outpatient (CLI) | payer OTHER ==
[2018-12-02 13:53] LABS: BASOPHILS ABSOLUTE AUTO 0.05 K/mm3 (0.00-0.23); BASOPHILS PERCENT AUTO 1 % (0-2); EOSINOPHILS ABSOLUTE AUTO 0.57 K/mm3 (0.00-0.68); EOSINOPHILS PERCENT AUTO 7 % (0-6); IMMATURE GRAN ABSOLUTE AUTO 0.03 K/mm3 (0.00-0.10); IMMATURE GRAN PERCENT AUTO 0 % (0-1); LYMPHOCYTES ABSOLUTE AUTO 1.14 K/mm3 (0.84-5.20); LYMPHOCYTES PERCENT AUTO 14 % (21-46); MONOCYTES ABSOLUTE AUTO 0.53 K/mm3 (0.16-1.47); MONOCYTES PERCENT AUTO 6 % (4-13); Mean Corpuscular HGB 30.2 pg (26.0-34.0); Mean Corpuscular HGB Conc 33.3 g/dL (31.5-36.5); Mean Corpuscular Volume 91 fL (80-100); Mean Platelet Volume 9.9 fL (9.1-12.4); NEUTROPHILS ABSOLUTE AUTO 6.03 K/mm3 (1.96-9.15); NEUTROPHILS PERCENT AUTO 72 % (41-73); Platelet Count 232 K/mm3 (150-400); RDW Coefficient Variation 14.5 % (11.7-14.2); Red Blood Cell Count 4.96 M/mm3 (4.30-5.90); White Blood Cell Count 8.35 K/mm3 (4.00-11.30)
[2018-12-02 14:29] LABS: Alanine Aminotransfer (ALT/SGP 29 U/L (12-78); Albumin, Blood 3.6 g/dL (3.4-5.0); Albumin/Globulin Ratio 0.9 (0.8-1.8); Alk Phos 113 U/L (40-126); Anion Gap 7 mmol/L (6-16); Aspartate Aminotrans (AST/SGOT 24 U/L (12-37); Bilirubin, Total 0.3 mg/dL (0.1-1.0); Blood Urea Nitrogen 12 mg/dL (8-24); Bun/Creatinine Ratio 10.2 (12.0-20.0); CO2, Blood 32 mmol/L (21-32); Calcium, Blood 9.4 mg/dL (8.5-10.1); Chloride, Blood 100 mmol/L (98-108); Creatinine, Blood 1.18 mg/dL (0.60-1.20); Globulin, Blood 3.9 g/dL (2.2-4.0); Glomerular Filtration Rate >60 (60-); Glucose, Blood 144 mg/dL (70-99); Potassium, Blood 4.9 mmol/L (3.5-5.5); Sodium, Blood 139 mmol/L (136-145); Total Protein, Blood 7.5 g/dL (6.4-8.2)
[2018-12-02 14:30] LABS: Troponin I <0.017 ng/mL (0.000-0.040)
== END | disposition home or self-care (01) ==
LOC: LAB SHORT 13:49 → LAB EV 13:49
PROVIDERS: Family Medicine
DX: R14.0 Abdominal distension (gaseous) (principal)
CPT/HCPCS: 80053; 84484; 85025

== ENCOUNTER 2018-12-24 11:36 | Day surgery (SDC) | payer OTHER ==
[~2018-12-24] VITALS: Ht 182.9 cm; Wt 122.3 kg
[2018-12-24] MEDS ORDERED: Aspirin EC81 MG PO (12:34)
[2018-12-24] MEDS ORDERED: METF500 (12:37)
--- NOTE | 2018-12-24 13:22 | NUR ---
12/24/18 1321 Anupama Blair PT MONITERED VIA PULSE OXIMETRY WHILE ON 3L O2 VIA NASAL CANNULA IN PREOP. DR MOSQUEDA NOTIFIED OF POSTERIOR EXP. WHEEZES. DUONEB GIVEN PER ORDERS
== END 2018-12-24 15:09 | disposition home or self-care (01) ==
LOC: ORSCSDS 11:36
PROVIDERS: Surgery
PROC: 0JB60ZZ Excision of Chest Subcutaneous Tissue and Fascia, Open Approach (ICD-10-PCS; principal; 2018-12-24 13:00)
DX: C44.529 Squamous cell carcinoma of skin of other part of trunk (principal); I10 Essential (primary) hypertension; J44.9 Chronic obstructive pulmonary disease, unspecified; J45.909 Unspecified asthma, uncomplicated; Z87.891 Personal history of nicotine dependence; E66.01 Morbid (severe) obesity due to excess calories; Z68.36 Body mass index [BMI] 36.0-36.9, adult
CPT/HCPCS: 82947; 88305; J2704; J7120

== ENCOUNTER 2019-01-31 19:58 | Observation (INO) | payer OTHER ==
[~2019-01-31] VITALS: Ht 182.9 cm; Wt 123.1 kg
[~2019-01-31 19:58] MED LIST changes: +Aspirin EC81 MG PO; +METF500
[2019-01-31 20:40] LABS: Hemoglobin 14.9 g/dL (13.5-17.5); Mean Corpuscular HGB 30.3 pg (26.0-34.0); Mean Corpuscular HGB Conc 31.7 g/dL (31.5-36.5); Mean Corpuscular Volume 96 fL (80-100); Mean Platelet Volume 10.2 fL (9.1-12.4); Platelet Count 256 K/mm3 (150-400); RDW Coefficient Variation 14.1 % (11.7-14.2); Red Blood Cell Count 4.92 M/mm3 (4.30-5.90)
[2019-01-31 20:54] LABS: International Normalized Ratio 0.93; Prothrombin Time Results 9.9 Sec (9.7-11.5)
[2019-01-31 20:55] LABS: Chloride (POC) 96 mmol/L (98-108); Creatinine (POC) 2.5 mg/dL (0.8-1.3); Glucose (ISTAT POC) 157 mg/dL (70-99); Hemoglobin (POC) 15.3 g/dL (13.5-17.5); Potassium (POC) 4.6 mmol/L (3.5-5.5); Sodium (POC) 138 mmol/L (135-148); Total CO2 (POC) 31 mmol/L (21-32)
[2019-01-31] MEDS ORDERED: TRELEGY ELLIPT1 EACH INH (21:09)
[2019-01-31] MEDS ORDERED: TIOT18 INH (21:10)
[2019-01-31] MEDS ORDERED: CYCL10 PO (21:11)
[2019-01-31] MEDS ORDERED: POTCHL20ER PO (21:12)
[2019-01-31] MEDS ORDERED: FURO80 PO (21:12)
[2019-01-31] MEDS ORDERED: METF500C PO (21:13)
[2019-01-31 21:33] LABS: Anion Gap 8 mmol/L (6-16); Blood Urea Nitrogen 23 mg/dL (8-24); Bun/Creatinine Ratio 9.8 (12.0-20.0); CHOL/HDL RATIO 3.3; CO2, Blood 28 mmol/L (21-32); CPK Creatine Kinase 208 U/L (39-308); Calcium, Blood 8.9 mg/dL (8.5-10.1); Chloride, Blood 102 mmol/L (98-108); Cholesterol 163 mg/dL (50-200); Creatine Kinase MB 4.8 ng/mL (0.0-3.6); Creatine Kinase MB Index 2.3 (0.0-4.0); Creatinine, Blood 2.34 mg/dL (0.60-1.20); Glomerular Filtration Rate 30 (60-); Glucose, Blood 162 mg/dL (70-99); HDL Cholesterol 49 mg/dL (>39); LDL/HDL RATIO 1.6; Low Density Lipoprotein Chol 80 mg/dL (0-110); Potassium, Blood 4.9 mmol/L (3.5-5.5); Sodium, Blood 138 mmol/L (136-145); Triglycerides 170 mg/dL (30-160); Troponin I <0.015 ng/mL (0.000-0.040); Very Low Density Lipoprot Chol 34 mg/dL (6-32)
--- NOTE | 2019-01-31 22:00 | NUR ---
INITIAL ASSESSMENT PATIENT ARRIVED TO UNIT AT 2135 FROM RN ICU. PATIENT ALERT AND ORIENTED X 4, HOWEVER DROWSY AT THIS TIME. PATIENT CONTINUES TO GO TO SLEEP IN BETWEEN QUESTIONS. PATIENT AFEBRILE. PATIENT DENIES PAIN OR DISCOMFORT. PATIENT SLIGHTLY TUSCARORA. PATIENT SATTING 90% AND GREATER ON 2 L NC. PATIENT STATES THAT HE WEARS 3 L NC AT HOME AND WEARS CPAP AT HOME AT HS. EXPIRATORY WHEEZES NOTED IN UPPER LUNG LOBES. LOWER LUNG LOBES DIMINISHED TO AUSCULTATION. PATIENT DENIES ANY RECENT COUGH. PATIENT IN SR, ST ELEVATION NOTED. T WAVE TALL. HR IN THE 80S. SBP 90S TO 1-TEENS. ABDOMEN SEVERELY DISTENDED, SOFT, NONTENDER, WITH HYPOACTIVE BS. PATIENT STATES LAST BM THIS AM. PATIENT STATES WNL. 3+ EDEMA NOTED TO BLES. TR BAND IN PLACE TO R RADIAL- 11 CC AIR INSTILLED PER RN ICU RN. PATIENT ORIENTED TO UNIT, ROOM AND CALL LIGHT. BED LOW, CALL LIGHT IN REACH. WILL CONTINUE TO MONITOR PATIENT FREQUENTLY THROUGHOUT SHIFT.
--- NOTE | 2019-02-01 00:46 | NUR ---
PATIENT SLEEPING SOUNDLY UPON ENTERING ROOM. PATIENT AFEBRILE. PATIENT DENIES PAIN OR DISCOMFORT. HR IN THE 70S, SBP 104. PATIENT SATTING 90% AND GREATER ON CPAP AT HOME SETTINGS. 2 CC AIR DEFLATED FROM TR BAND TO R RADIAL- NO BLEEDING, BRUISING, HEMATOMA NOTED. NO OTHER ACUTE CHANGES TO NOTE ON AT THIS TIME. WILL CONTINUE TO MONITOR.
--- NOTE | 2019-02-01 01:20 | NUR ---
2 CC AIR DEFLATED FROM TR BAND. NO BLEEDING, BRUISING OR HEMATOMA NOTED. WILL CONTINUE TO MONITOR.
--- NOTE | 2019-02-01 01:38 | NUR ---
2 CC AIR DEFLATED FROM TR BAND. SITE REMAINS WNL- NO BLEEDING, BRUISING, HEMATOMA NOTED. WILL CONTINUE TO MONITOR.
--- NOTE | 2019-02-01 02:20 | NUR ---
2 CC AIR DEFLATED FROM CUFF- REMAINS STABLE. WILL CONTINUE TO MONITOR.
--- NOTE | 2019-02-01 02:35 | NUR ---
TR BAND NOW FULLY DEFLATED. NO BLEEDING, BRUISING, OR HEMATOMA NOTED. WILL CONTINUE TO MONITOR.
--- NOTE | 2019-02-01 03:00 | NUR ---
TR BAND PT RESTING QUIETLY WITH CPAP ON. RIGHT WRIST TR SITE STABLE, NO BLEEDING OR HEMATOMA
--- NOTE | 2019-02-01 04:00 | NUR ---
PATIENT SLEEPING SOUNDLY UPON ENTERING ROOM. NO COMPLAINTS. VSS. TR BAND FULLY DEFLATED BUT REMAINS IN PLACE. NO BRUISING, BLEEDING, OR HEMATOMA NOTED. NO ACUTE CHANGES TO NOTE ON AT THIS TIME. WILL CONTINUE TO MONITOR.
[2019-02-01 05:27] LABS: BASOPHILS ABSOLUTE AUTO 0.05 K/mm3 (0.00-0.23); BASOPHILS PERCENT AUTO 1 % (0-2); EOSINOPHILS ABSOLUTE AUTO 0.29 K/mm3 (0.00-0.68); EOSINOPHILS PERCENT AUTO 4 % (0-6); Hemoglobin 14.4 g/dL (13.5-17.5); IMMATURE GRAN ABSOLUTE AUTO 0.06 K/mm3 (0.00-0.10); IMMATURE GRAN PERCENT AUTO 1 % (0-1); LYMPHOCYTES PERCENT AUTO 11 % (21-46); MONOCYTES ABSOLUTE AUTO 0.22 K/mm3 (0.16-1.47); MONOCYTES PERCENT AUTO 3 % (4-13); Mean Corpuscular HGB 30.1 pg (26.0-34.0); Mean Corpuscular HGB Conc 31.3 g/dL (31.5-36.5); Mean Corpuscular Volume 96 fL (80-100); Mean Platelet Volume 10.3 fL (9.1-12.4); NEUTROPHILS ABSOLUTE AUTO 6.38 K/mm3 (1.96-9.15); NEUTROPHILS PERCENT AUTO 81 % (41-73); Platelet Count 193 K/mm3 (150-400); RDW Coefficient Variation 14.1 % (11.7-14.2); RDW Standard Deviation 50.5 fL (35.1-46.3); Red Blood Cell Count 4.79 M/mm3 (4.30-5.90)
--- NOTE | 2019-02-01 05:49 | NUR ---
TR BAND REMOVED. TEGADERM PLACED. NO BLEEDING, BRUISING, HEMATOMA NOTED. ARMBOARD PLACED BACK ON. WILL CONTINUE TO MONITOR.
[2019-02-01 05:54] LABS: Albumin, Blood 3.5 g/dL (3.4-5.0); Bilirubin, Total 0.3 mg/dL (0.1-1.0); Bun/Creatinine Ratio 12.4 (12.0-20.0); Calcium, Blood 8.2 mg/dL (8.5-10.1); Creatinine, Blood 1.77 mg/dL (0.60-1.20); Globulin, Blood 3.4 g/dL (2.2-4.0); Potassium, Blood 4.8 mmol/L (3.5-5.5); Total Protein, Blood 6.9 g/dL (6.4-8.2)
--- NOTE | 2019-02-01 06:46 | NUR ---
SHIFT SUMMARY PATIENT SLEPT MOST OF THE SHIFT. PATIENT LESS DROWSY AND UP AND WATCHING TV THIS AM. PATIENT REMAINED AFEBRILE. PATIENT HAD NO COMPLAINTS OF PAIN DURING SHIFT. PATIENT REMAINED ALERT AND ORIENTED X 4. PATIENT SATTED 90% AND GREATER ON 1-2 L NC WHILE AWAKE AND CPAP AT HOME SETTINGS WHILE SLEEPING. PATIENT PATIENT REMAINED IN SR WITH ST ELEVATION AND TALL T WAVE. HR 60S TO 80S. SBP 90S TO 140S. SCDS IN PLACE. PATIENT DID NOT HAVE BM THIS SHIFT. PATIENT ON ADA DIET AND IS TOLERATING FINE SO FAR. PATIENT HAD NOT VOIDED ALL SHIFT AND DID NOT HAVE THE URGE SO BLADDER SCANNED AND SHOWED 524 MLS OF URINE IN BLADDER. PATIENT ABLE TO VOID ON BSC SHORT TIME LATER AND HAD 375 MLS OUT. URINE NILS IN COLOR. TR BAND TO R RADIAL SITE NOW OFF. SITE REMAINS STABLE WITH NO BLEEDING, BRUISING, OR HEMATOMA. ARMBOARD REMAINS IN PLACE. NS INFUSING AT 200 MLS/ HOUR. MRSA CLEARING PROTOCOL STARTED PATIENT HAS HISTORY OF MRSA IN WOUND. PATIENT HAS NO COMPLAINTS AT THIS TIME. BED LOW, CALL LIGHT IN REACH. WILL BE GIVING REPORT TO ONCOMING DAY SHIFT NURSE SHORTLY.
--- NOTE | 2019-02-01 07:36 | NUR ---
Recieved report from Augustina PALOMO. Patient awake in bed with HOB at 30 degrees and is alert and awake . He is able to communicate his needs verbally and denies any current needs or pain. He is on 3L O2 via NC and sats 94% and RT is in room starting treatment. During report he was up to bedside cammode with assist. He has access site to right wrist, TR Band off and clear op site applied and is C/D/I and no oozing, bleeding, or hematoma. He has SCD's on bilateral LE's. He has 20ga IV to right hand and changed dressing as other one was wadded upand site WNL flushed and SL'd. He also has 18ga LAC dressing intacty and site WNL's and is infusing NS at 200 ml/hr.
--- NOTE | 2019-02-01 10:37 | NUR ---
Patient has been resting after breakfast. Dr Godfrey and Dr Khan have both could be discharged. Charge nurse has discharge instructions and will be preparing for patient. He remains on 3L O2 and sats low to mid 90%'s. He has been given verbal instructions on access site , care and wound management and returned understanding of information.
[2019-02-01] MEDS ORDERED: AMLO10 PO (11:05)
[2019-02-01] MEDS ORDERED: DOXY100 PO (11:06)
[2019-02-01] MEDS ORDERED: PRED20 PO (11:09)
--- NOTE | 2019-02-01 11:15 | NUR ---
DISCHARGE INSTRUCTIONS: VERBAL/DISCHARGE INSTRUCTIONS GIVEN TO PT ON F/U APPTS, MEDICATIONS, AND ACTIVITY RESTRICTIONS. IV'S D/C'D, CATH INTACT. RT TR BAND SITE REMAINS STABLE, SPLINT IN PLACE. PT WAS TAKEN OUT VIA W/C VIA [facility]IR.
--- NOTE | 2019-02-01 11:36 | NUR ---
Patient recieve written discharge orders and he returned understanding of information. IV's pulled intact and wrapped in coban. He transfered to chair and was taken out to POV.
== END 2019-02-01 11:30 | disposition home or self-care (01) ==
LOC: ER 19:58 → ICUW 20:30 → ER 20:30 → ICUW 20:30
PROVIDERS: Emergency Medicine; Internal Medicine; ADMIT Internal Medicine Interventional Cardiology
PROC: B2111ZZ Fluoroscopy of Multiple Coronary Arteries using Low Osmolar Contrast (ICD-10-PCS; principal; 2019-01-31)
DX: R10.13 Epigastric pain (principal); R07.81 Pleurodynia; J44.1 Chronic obstructive pulmonary disease with (acute) exacerbation; N17.9 Acute kidney failure, unspecified; J96.11 Chronic respiratory failure with hypoxia; E66.9 Obesity, unspecified; E86.0 Dehydration; I25.10 Atherosclerotic heart disease of native coronary artery without angina pectoris; E78.5 Hyperlipidemia, unspecified; G47.33 Obstructive sleep apnea (adult) (pediatric); K21.9 Gastro-esophageal reflux disease without esophagitis; E11.22 Type 2 diabetes mellitus with diabetic chronic kidney disease; I12.9 Hypertensive chronic kidney disease with stage 1 through stage 4 chronic kidney disease, or unspecified chronic kidney disease; N18.9 Chronic kidney disease, unspecified; G89.29 Other chronic pain; M54.9 Dorsalgia, unspecified; Z91.14 Patient's other noncompliance with medication regimen; Z99.81 Dependence on supplemental oxygen; Z79.899 Other long term (current) drug therapy; Z79.82 Long term (current) use of aspirin; Z79.84 Long term (current) use of oral hypoglycemic drugs; Z79.890 Hormone replacement therapy; Z87.891 Personal history of nicotine dependence; Z88.0 Allergy status to penicillin; Z79.52 Long term (current) use of systemic steroids; Z79.51 Long term (current) use of inhaled steroids; Z68.32 Body mass index [BMI] 32.0-32.9, adult
CPT/HCPCS: 36415; 71045; 80047; 80048; 80053; 80061; 82550; 82553; 82947; 83036; 83735; 84484; 85014; 85025; 85027; 85610; 85730; 86850; 86900; 86901; 87070; 87081; 93005; 93010; 93454; 94640; 94660; 96372; 96374; 96376; 99152; 99285-25; C1769; C1887; C1894; G0378; J1644; J1650; J2250; J2930; J3010; J7030; Q9967

== ENCOUNTER 2019-03-04 11:55 | Emergency (ER) | payer OTHER ==
[~2019-03-04] VITALS: Ht 182.9 cm; Wt 111.6 kg
[~2019-03-04 11:55] MED LIST changes: +DOXY100 PO; +FURO80 PO; +POTCHL20ER PO
[2019-03-04 12:35] LABS: Calcium, Ionized (POC) 1.22 mmol/L (1.10-1.46); Chloride (POC) 95 mmol/L (98-108); Creatinine (POC) 1.4 mg/dL (0.8-1.3); Glucose (ISTAT POC) 129 mg/dL (70-99); Potassium (POC) 3.8 mmol/L (3.5-5.5); Sodium (POC) 138 mmol/L (135-148); Total CO2 (POC) 35 mmol/L (21-32)
== END 2019-03-04 13:35 | disposition home or self-care (01) ==
LOC: ER 11:55
PROVIDERS: Emergency Medicine
DX: R29.898 Other symptoms and signs involving the musculoskeletal system (principal); Z88.0 Allergy status to penicillin; Z79.899 Other long term (current) drug therapy; Z79.82 Long term (current) use of aspirin; Z79.52 Long term (current) use of systemic steroids; J44.9 Chronic obstructive pulmonary disease, unspecified; Z99.81 Dependence on supplemental oxygen; I10 Essential (primary) hypertension; E78.5 Hyperlipidemia, unspecified; E11.9 Type 2 diabetes mellitus without complications; K21.9 Gastro-esophageal reflux disease without esophagitis; Z87.891 Personal history of nicotine dependence
CPT/HCPCS: 36415; 72100; 80047; 85014; 99283-25

== ENCOUNTER 2019-05-14 12:10 | Emergency (ER) | payer OTHER ==
[~2019-05-14] VITALS: Ht 182.9 cm; Wt 111.6 kg
[~2019-05-14 12:10] MED LIST changes: +KETO10 PO; +Roxicodone5 MG PO; +Zofran8 MG PO
[2019-05-14 12:43] LABS: BASOPHILS ABSOLUTE AUTO 0.06 K/mm3 (0.00-0.23); BASOPHILS PERCENT AUTO 1 % (0-2); EOSINOPHILS ABSOLUTE AUTO 1.11 K/mm3 (0.00-0.68); EOSINOPHILS PERCENT AUTO 12 % (0-6); Hematocrit 42.6 % (37.0-53.0); Hemoglobin 14.4 g/dL (13.5-17.5); IMMATURE GRAN ABSOLUTE AUTO 0.03 K/mm3 (0.00-0.10); IMMATURE GRAN PERCENT AUTO 0 % (0-1); LYMPHOCYTES ABSOLUTE AUTO 1.95 K/mm3 (0.84-5.20); LYMPHOCYTES PERCENT AUTO 21 % (21-46); MONOCYTES ABSOLUTE AUTO 0.71 K/mm3 (0.16-1.47); MONOCYTES PERCENT AUTO 8 % (4-13); Mean Corpuscular HGB Conc 33.8 g/dL (31.5-36.5); Mean Corpuscular Volume 86 fL (80-100); Mean Platelet Volume 9.9 fL (9.1-12.4); NEUTROPHILS ABSOLUTE AUTO 5.67 K/mm3 (1.96-9.15); NEUTROPHILS PERCENT AUTO 60 % (41-73); Platelet Count 266 K/mm3 (150-400); RDW Coefficient Variation 12.7 % (11.7-14.2); RDW Standard Deviation 39.8 fL (35.1-46.3); Red Blood Cell Count 4.96 M/mm3 (4.30-5.90); White Blood Cell Count 9.53 K/mm3 (4.00-11.30)
[2019-05-14 13:00] LABS: Alanine Aminotransfer (ALT/SGP 26 U/L (12-78); Albumin/Globulin Ratio 1.2 (0.8-1.8); Alk Phos 114 U/L (50-136); Anion Gap 6 mmol/L (6-16); Aspartate Aminotrans (AST/SGOT 21 U/L (12-37); Bilirubin, Total 0.6 mg/dL (0.1-1.0); Blood Urea Nitrogen 13 mg/dL (8-24); Bun/Creatinine Ratio 12.9 (12.0-20.0); CO2, Blood 32 mmol/L (21-32); Calcium, Blood 9.7 mg/dL (8.5-10.1); Chloride, Blood 100 mmol/L (98-108); Creatinine, Blood 1.01 mg/dL (0.60-1.20); Globulin, Blood 3.4 g/dL (2.2-4.0); Glomerular Filtration Rate >60 (60-); Glucose, Blood 139 mg/dL (70-99); Potassium, Blood 3.6 mmol/L (3.5-5.5); Sodium, Blood 138 mmol/L (136-145); Total Protein, Blood 7.4 g/dL (6.4-8.2)
[2019-05-14] MEDS ORDERED: ONDA4ODT MM (14:25)
[2019-05-14] MEDS ORDERED: KETO10 PO (14:25)
[2019-05-14] MEDS ORDERED: Flomax0.4 MG PO (14:25)
== END 2019-05-14 14:24 | disposition home or self-care (01) ==
LOC: ER 12:10
PROVIDERS: Emergency Medicine
DX: R10.9 Unspecified abdominal pain (principal)
CPT/HCPCS: 36415; 80053; 85025; 96374; 99283-25; J1885

== ENCOUNTER 2019-05-18 01:39 | Emergency (ER) | payer OTHER ==
[~2019-05-18] VITALS: Ht 182.9 cm; Wt 116.1 kg
[~2019-05-18 01:39] MED LIST changes: +Flomax0.4 MG PO; +ONDA4ODT MM
[2019-05-18 02:24] LABS: BASOPHILS ABSOLUTE AUTO 0.09 K/mm3 (0.00-0.23); BASOPHILS PERCENT AUTO 1 % (0-2); EOSINOPHILS PERCENT AUTO 16 % (0-6); Hematocrit 42.8 % (37.0-53.0); Hemoglobin 14.1 g/dL (13.5-17.5); IMMATURE GRAN ABSOLUTE AUTO 0.04 K/mm3 (0.00-0.10); IMMATURE GRAN PERCENT AUTO 0 % (0-1); LYMPHOCYTES ABSOLUTE AUTO 2.87 K/mm3 (0.84-5.20); LYMPHOCYTES PERCENT AUTO 27 % (21-46); MONOCYTES ABSOLUTE AUTO 0.99 K/mm3 (0.16-1.47); MONOCYTES PERCENT AUTO 9 % (4-13); Mean Corpuscular HGB 29.4 pg (26.0-34.0); Mean Corpuscular HGB Conc 32.9 g/dL (31.5-36.5); Mean Corpuscular Volume 89 fL (80-100); Mean Platelet Volume 10.3 fL (9.1-12.4); NEUTROPHILS PERCENT AUTO 47 % (41-73); Platelet Count 248 K/mm3 (150-400); RDW Coefficient Variation 12.8 % (11.7-14.2); RDW Standard Deviation 42.2 fL (35.1-46.3); White Blood Cell Count 10.79 K/mm3 (4.00-11.30)
[2019-05-18 02:39] LABS: Alanine Aminotransfer (ALT/SGP 21 U/L (12-78); Albumin, Blood 3.7 g/dL (3.4-5.0); Alk Phos 119 U/L (50-136); Anion Gap 5 mmol/L (6-16); Aspartate Aminotrans (AST/SGOT 15 U/L (12-37); Bilirubin, Total 0.3 mg/dL (0.1-1.0); Blood Urea Nitrogen 11 mg/dL (8-24); Bun/Creatinine Ratio 9.4 (12.0-20.0); CO2, Blood 35 mmol/L (21-32); Calcium, Blood 9.3 mg/dL (8.5-10.1); Chloride, Blood 99 mmol/L (98-108); Creatinine, Blood 1.17 mg/dL (0.60-1.20); Globulin, Blood 3.6 g/dL (2.2-4.0); Glomerular Filtration Rate >60 (60-); Glucose, Blood 152 mg/dL (70-99); Magnesium, Blood 1.6 mg/dL (1.6-2.4); Potassium, Blood 3.7 mmol/L (3.5-5.5); Sodium, Blood 139 mmol/L (136-145); Total Protein, Blood 7.3 g/dL (6.4-8.2); Troponin I <0.015 ng/mL (0.000-0.040)
[2019-05-18 02:54] LABS: PCO2 Arterial 50.8 mmHg (35-45); PO2 Arterial 71.7 mmHg (80-100); pH Blood Arterial 7.45 (7.35-7.45)
== END 2019-05-18 04:31 | disposition home or self-care (01) ==
LOC: ER 01:39
PROVIDERS: Emergency Medicine
DX: J44.1 Chronic obstructive pulmonary disease with (acute) exacerbation (principal); I10 Essential (primary) hypertension; E11.9 Type 2 diabetes mellitus without complications; E78.5 Hyperlipidemia, unspecified; K21.9 Gastro-esophageal reflux disease without esophagitis; E66.9 Obesity, unspecified; G47.33 Obstructive sleep apnea (adult) (pediatric); Z68.34 Body mass index [BMI] 34.0-34.9, adult; Z87.891 Personal history of nicotine dependence; Z88.0 Allergy status to penicillin; Z79.899 Other long term (current) drug therapy; Z79.82 Long term (current) use of aspirin; Z79.51 Long term (current) use of inhaled steroids
CPT/HCPCS: 36600; 71046; 80053; 82803; 83735; 83880; 84484; 85025; 94644; 99284-25

== ENCOUNTER 2019-06-29 10:26 | Observation (INO) | payer OTHER ==
[~2019-06-29] VITALS: Ht 182.9 cm; Wt 103.7 kg
[~2019-06-29 10:26] MED LIST changes: -AMIT25 PO; +AMIT50 PO
[2019-06-29 11:06] LABS: BASOPHILS ABSOLUTE AUTO 0.06 K/mm3 (0.00-0.23); BASOPHILS PERCENT AUTO 1 % (0-2); EOSINOPHILS ABSOLUTE AUTO 1.63 K/mm3 (0.00-0.68); EOSINOPHILS PERCENT AUTO 20 % (0-6); Hematocrit 45.9 % (37.0-53.0); Hemoglobin 14.2 g/dL (13.5-17.5); IMMATURE GRAN ABSOLUTE AUTO 0.03 K/mm3 (0.00-0.10); IMMATURE GRAN PERCENT AUTO 0 % (0-1); LYMPHOCYTES ABSOLUTE AUTO 2.14 K/mm3 (0.84-5.20); LYMPHOCYTES PERCENT AUTO 27 % (21-46); MONOCYTES ABSOLUTE AUTO 0.62 K/mm3 (0.16-1.47); MONOCYTES PERCENT AUTO 8 % (4-13); Mean Corpuscular HGB 27.7 pg (26.0-34.0); Mean Corpuscular HGB Conc 30.9 g/dL (31.5-36.5); Mean Corpuscular Volume 90 fL (80-100); Mean Platelet Volume 10.5 fL (9.1-12.4); NEUTROPHILS ABSOLUTE AUTO 3.59 K/mm3 (1.96-9.15); NEUTROPHILS PERCENT AUTO 45 % (41-73); Platelet Count 227 K/mm3 (150-400); RDW Standard Deviation 42.5 fL (35.1-46.3); Red Blood Cell Count 5.13 M/mm3 (4.30-5.90); White Blood Cell Count 8.07 K/mm3 (4.00-11.30)
[2019-06-29 11:17] LABS: Alanine Aminotransfer (ALT/SGP 32 U/L (12-78); Albumin, Blood 3.6 g/dL (3.4-5.0); Albumin/Globulin Ratio 0.9 (0.8-1.8); Alk Phos 102 U/L (50-136); Anion Gap 5 mmol/L (6-16); Aspartate Aminotrans (AST/SGOT 20 U/L (12-37); Bilirubin, Total 0.6 mg/dL (0.1-1.0); Blood Urea Nitrogen 15 mg/dL (8-24); Bun/Creatinine Ratio 15.7 (12.0-20.0); CO2, Blood 31 mmol/L (21-32); Calcium, Blood 9.3 mg/dL (8.5-10.1); Chloride, Blood 103 mmol/L (98-108); Creatinine, Blood 0.96 mg/dL (0.60-1.20); Globulin, Blood 3.8 g/dL (2.2-4.0); Glomerular Filtration Rate >60 (60-); Glucose, Blood 131 mg/dL (70-99); Potassium, Blood 4.2 mmol/L (3.5-5.5); Sodium, Blood 139 mmol/L (136-145); Total Protein, Blood 7.4 g/dL (6.4-8.2); Troponin I <0.015 ng/mL (0.000-0.040)
[2019-06-29] MEDS ORDERED: ROFL500T PO (13:33)
[2019-06-29] MEDS ORDERED: AMIT25 PO (13:34)
[2019-06-29] MEDS ORDERED: Perforomis20 MCG/2 M INH (13:35)
[2019-06-29] MEDS ORDERED: Atarax10 MG PO (13:35)
[2019-06-29] MEDS ORDERED: LONHALA MA25 MCG/1 M INH (13:35)
[2019-06-29] MEDS ORDERED: Clear-Atadine10 MG PO (13:36)
[2019-06-29] MEDS ORDERED: METFORMIN HCL500 M3 PO (13:37)
[2019-06-29] MEDS ORDERED: LISINOPRIL2.5 MG PO (13:38)
[2019-06-29] MEDS ORDERED: B-121000 MC3 PO (13:39)
--- NOTE | 2019-06-29 17:13 | NUR ---
PT TO THE ROOM VIA [facility] THIS AFTERNOON. ADMISSION ASSESSMENT COMPLETE. PT ALERT AND ORIENTED, INDEPENDENT IN THE ROOM. PT STATES SHORTNESS OF BREATH WHILE AMBULATING TO THE BATHROOM, BUT MUCH APPROVED SINCE THIS CALLING THE AMBULANCE THIS MORNING. PT IS CURRENTLY ON 4 02. PT CURRENTLY SITTING UP IN BED WATCHING TELEVISION.
--- NOTE | 2019-06-29 19:55 | NUR ---
GENARO WAS WATCHING TV WHILE LAYING IN BED. STATES HE COULD HAVE BETTER DAYS. SATS IN THE 90'S AT THIS TIME ON CONTINUOUS BIOX ON 4 LITERS OF O2. LUNG SOUNDS WITH WHEEZES UPPER LOBES, DIMINISHED IN BASES. ABLE TO GET UP TO THE BATHROOM BUT STATES SOB WITH EXERTION, RECOVERS QUICK. WILL CONTINUE TO MONITOR, CALL LIGHT IN REACH.
--- NOTE | 2019-06-29 23:56 | NUR ---
RT IN ROOM HOOKING UP HOME CPAP MACHINE.
[2019-06-30 05:38] LABS: BASOPHILS ABSOLUTE AUTO 0.03 K/mm3 (0.00-0.23); BASOPHILS PERCENT AUTO 0 % (0-2); EOSINOPHILS ABSOLUTE AUTO 0.01 K/mm3 (0.00-0.68); EOSINOPHILS PERCENT AUTO 0 % (0-6); Hematocrit 41.4 % (37.0-53.0); Hemoglobin 13.4 g/dL (13.5-17.5); IMMATURE GRAN ABSOLUTE AUTO 0.07 K/mm3 (0.00-0.10); IMMATURE GRAN PERCENT AUTO 1 % (0-1); LYMPHOCYTES ABSOLUTE AUTO 0.94 K/mm3 (0.84-5.20); LYMPHOCYTES PERCENT AUTO 8 % (21-46); MONOCYTES ABSOLUTE AUTO 0.51 K/mm3 (0.16-1.47); MONOCYTES PERCENT AUTO 4 % (4-13); Mean Corpuscular HGB 28.6 pg (26.0-34.0); Mean Corpuscular HGB Conc 32.4 g/dL (31.5-36.5); Mean Corpuscular Volume 88 fL (80-100); Mean Platelet Volume 10.6 fL (9.1-12.4); NEUTROPHILS ABSOLUTE AUTO 10.78 K/mm3 (1.96-9.15); NEUTROPHILS PERCENT AUTO 87 % (41-73); Platelet Count 220 K/mm3 (150-400); RDW Coefficient Variation 12.8 % (11.7-14.2); RDW Standard Deviation 40.9 fL (35.1-46.3); Red Blood Cell Count 4.69 M/mm3 (4.30-5.90); White Blood Cell Count 12.34 K/mm3 (4.00-11.30)
--- NOTE | 2019-06-30 06:19 | NUR ---
SHIFT SUMMARY: GENARO'S HAS REMAINED STABLE THROUGHOUT THE SHIFT. OXYGEN SATS HAVE REMAINED IN HIGH 90'S THROUGHOUT THE SHIFT ON 4 LITERS OF O2. HE HAS BEEN INDEPENDANT TO THE BATHROOM EVEN THOUGH HE HAS BEEN SOB WITH EXERTION. SOB HAS IMPROVED QUICKLY WHEN SITTING DOWN. VS HAVE REMAINED STABLE. HE CALLED FOR 1 BREATHING TREATMENT THIS SHIFT. NO OTHER ACUTE CHANGES OCCURED THIS SHIFT. WILL REPORT OFF.
[2019-06-30 11:59] LABS: Adenovirus Not Detected (NOT DETECT); Coronavirus 229E Not Detected (NOT DETECT); Coronavirus HKU1 Not Detected (NOT DETECT)
[2019-06-30 12:00] LABS: Bordetella pertussis Not Detected (NOT DETECT); Chlamydophila pneumoniae Not Detected (NOT DETECT); Coronavirus NL63 Not Detected (NOT DETECT); Coronavirus OC43 Not Detected (NOT DETECT); Human Metapneumovirus Not Detected (NOT DETECT); Human Rhinovirus/Enterovirus Not Detected (NOT DETECT); Influenza A Not Detected (NOT DETECT); Influenza A/2009-H1 Not Detected (NOT DETECT); Influenza A/H1 Not Detected (NOT DETECT); Influenza A/H3 Not Detected (NOT DETECT); Influenza B Not Detected (NOT DETECT); Mycoplasma pneumoniae Not Detected (NOT DETECT); Parainfluenza Virus 1 Not Detected (NOT DETECT); Parainfluenza Virus 2 Not Detected (NOT DETECT); Parainfluenza Virus 3 Not Detected (NOT DETECT); Parainfluenza Virus 4 Not Detected (NOT DETECT); Respiratory Syncytial Virus Not Detected (NOT DETECT)
--- NOTE | 2019-06-30 17:58 | NUR ---
SHIFT SUMMARY PATIENT IS PLEASANT, ALERT AND ORIENTED. NO ACUTE CONCERNS AT END OF SHIFT. PATIENT HAD HIS IV REMOVED. HE IS POTENTIAL FOR DISCHARGE TOMORROW.
--- NOTE | 2019-06-30 19:30 | NUR ---
GENARO STATES HE JUST HAD A LARGE COUGHING SPASM THAT CAUSED HIS WHOLE BODY TO SHAKE AND HIM FEEL LIGHTHEADED AND WEAK. STATES HE LOST HIS BREATH WELL. SCARED HIM. ENCOURAGED HIM TO CALL NEXT TIME THIS OCCURES SO WE CAN MONITOR IT. IF HE CONTINUES TO COUGH AND HAVE SPASM ATTACHES WILL CALL MD FOR COUGH MEDS. HE THEN SAT AND TALKED ALL ABOUT HIS FAMILY AND HIS PLANS FOR LIFE HOPEING HE CAN GET OVER HIS ILLNESS SOON. DISCUSSED WITH HIM SOME LIFE STYLE CHANGES THAT HE CAN DO TO HELP.
--- NOTE | 2019-07-01 00:12 | NUR ---
GENARO IS RESTING COMFORTABLY, SATS ARE IN THE 90'S AND HOLDING, NO SIGNS OF DISTRESS NOTED. CALL LIGHT IN REACH.
[2019-07-01 05:13] LABS: BASOPHILS ABSOLUTE AUTO 0.02 K/mm3 (0.00-0.23); BASOPHILS PERCENT AUTO 0 % (0-2); EOSINOPHILS ABSOLUTE AUTO 0.02 K/mm3 (0.00-0.68); EOSINOPHILS PERCENT AUTO 0 % (0-6); Hematocrit 39.1 % (37.0-53.0); Hemoglobin 12.4 g/dL (13.5-17.5); IMMATURE GRAN ABSOLUTE AUTO 0.07 K/mm3 (0.00-0.10); IMMATURE GRAN PERCENT AUTO 1 % (0-1); LYMPHOCYTES ABSOLUTE AUTO 1.57 K/mm3 (0.84-5.20); LYMPHOCYTES PERCENT AUTO 13 % (21-46); MONOCYTES ABSOLUTE AUTO 0.81 K/mm3 (0.16-1.47); MONOCYTES PERCENT AUTO 7 % (4-13); Mean Corpuscular HGB 28.1 pg (26.0-34.0); Mean Corpuscular HGB Conc 31.7 g/dL (31.5-36.5); Mean Corpuscular Volume 89 fL (80-100); Mean Platelet Volume 10.6 fL (9.1-12.4); NEUTROPHILS ABSOLUTE AUTO 9.75 K/mm3 (1.96-9.15); NEUTROPHILS PERCENT AUTO 80 % (41-73); Platelet Count 220 K/mm3 (150-400); RDW Coefficient Variation 12.8 % (11.7-14.2); RDW Standard Deviation 42.1 fL (35.1-46.3); Red Blood Cell Count 4.41 M/mm3 (4.30-5.90); White Blood Cell Count 12.24 K/mm3 (4.00-11.30)
--- NOTE | 2019-07-01 05:53 | NUR ---
SHIFT SUMMARY: GENARO HAS HAD A GOOD NIGHT, VITALS HAVE REMAINED STABLE WITH BP'S RUNNING IN THE 90'S. SATS HAVE REMAINED IN THE 90'S WELL. HE DID REPORT COUGHING SPASM THAT CAUSED WHOLE BODY TREMORS THIS WAS UNWITNESSED, INSTRUCTED HIM TO CALL WHEN IT OCCURS AGAIN. HE HAS SLEPT WELL THROUGHOUT THE NIGHT, WITH NO FUTHER CHANGES TO REPORT WILL REPORT TO DAY SHIFT.
--- NOTE | 2019-07-01 10:49 | NUR ---
patient was taken for a walk. his blood pressure was also retaken. he had come up to 90/64 from 87/58. he is still asymptomatic for low blood pressure. will check before and after lunch.
[2019-07-01] MEDS ORDERED: METF500C PO (15:06)
[2019-07-01] MEDS ORDERED: PRED10 PO (15:08)
--- NOTE | 2019-07-01 17:29 | NUR ---
SHIFT SUMMARY PATIENT PLEASANT, ALERT AND ORIENTED. HE IS SET FOR DISCHARGE.
== END 2019-07-01 17:55 | disposition home or self-care (01) ==
LOC: ER 10:26 → MEDS 10:27
PROVIDERS: Emergency Medicine; Nurse Practitioner Acute Care; ADMIT Family Medicine
DX: J44.1 Chronic obstructive pulmonary disease with (acute) exacerbation (principal); J96.11 Chronic respiratory failure with hypoxia; G47.33 Obstructive sleep apnea (adult) (pediatric); I10 Essential (primary) hypertension; D72.829 Elevated white blood cell count, unspecified; I95.9 Hypotension, unspecified; E78.5 Hyperlipidemia, unspecified; E11.9 Type 2 diabetes mellitus without complications; K21.9 Gastro-esophageal reflux disease without esophagitis; G89.29 Other chronic pain; M54.9 Dorsalgia, unspecified; N40.0 Benign prostatic hyperplasia without lower urinary tract symptoms; F32.9 Major depressive disorder, single episode, unspecified; E66.9 Obesity, unspecified; Z68.31 Body mass index [BMI] 31.0-31.9, adult; Z79.82 Long term (current) use of aspirin; Z79.84 Long term (current) use of oral hypoglycemic drugs; Z79.899 Other long term (current) drug therapy; Z88.0 Allergy status to penicillin; Z87.891 Personal history of nicotine dependence; Z99.81 Dependence on supplemental oxygen; Z99.89 Dependence on other enabling machines and devices
CPT/HCPCS: 0099U; 36415; 71045; 71046; 80053; 82947; 83880; 84484; 85025; 93005; 93010; 94640; 94660; 94760; 94762; 96372; 98960; 99285-25; C9113; G0378; J1650; J7512

== ENCOUNTER 2019-07-04 20:35 | Inpatient (IN) | payer OTHER, MEDICARE ==
[~2019-07-04] VITALS: Ht 182.9 cm; Wt 103.2 kg
[~2019-07-04 20:35] MED LIST changes: +AMIT25 PO; +Atarax10 MG PO; +B-121000 MC3 PO; +Clear-Atadine10 MG PO; +LISINOPRIL2.5 MG PO; +LONHALA MA25 MCG/1 M INH; +METFORMIN HCL500 M3 PO; +Perforomis20 MCG/2 M INH; +ROFL500T PO
[2019-07-04 21:31] LABS: BASOPHILS ABSOLUTE AUTO 0.09 K/mm3 (0.00-0.23); BASOPHILS PERCENT AUTO 1 % (0-2); EOSINOPHILS ABSOLUTE AUTO 1.71 K/mm3 (0.00-0.68); EOSINOPHILS PERCENT AUTO 11 % (0-6); Hematocrit 44.9 % (37.0-53.0); Hemoglobin 14.7 g/dL (13.5-17.5); IMMATURE GRAN ABSOLUTE AUTO 0.09 K/mm3 (0.00-0.10); IMMATURE GRAN PERCENT AUTO 1 % (0-1); LYMPHOCYTES ABSOLUTE AUTO 3.72 K/mm3 (0.84-5.20); LYMPHOCYTES PERCENT AUTO 24 % (21-46); MONOCYTES ABSOLUTE AUTO 1.07 K/mm3 (0.16-1.47); MONOCYTES PERCENT AUTO 7 % (4-13); Mean Corpuscular HGB 28.6 pg (26.0-34.0); Mean Corpuscular HGB Conc 32.7 g/dL (31.5-36.5); Mean Corpuscular Volume 87 fL (80-100); Mean Platelet Volume 10.4 fL (9.1-12.4); NEUTROPHILS ABSOLUTE AUTO 9.03 K/mm3 (1.96-9.15); NEUTROPHILS PERCENT AUTO 57 % (41-73); Platelet Count 293 K/mm3 (150-400); RDW Coefficient Variation 12.9 % (11.7-14.2); RDW Standard Deviation 41.4 fL (35.1-46.3); Red Blood Cell Count 5.14 M/mm3 (4.30-5.90); White Blood Cell Count 15.71 K/mm3 (4.00-11.30)
[2019-07-04 21:45] LABS: Troponin I <0.015 ng/mL (0.000-0.040)
[2019-07-04 21:46] LABS: Alanine Aminotransfer (ALT/SGP 39 U/L (12-78); Albumin, Blood 3.9 g/dL (3.4-5.0); Alk Phos 109 U/L (50-136); Anion Gap 6 mmol/L (6-16); Aspartate Aminotrans (AST/SGOT 18 U/L (12-37); Bilirubin, Total 0.2 mg/dL (0.1-1.0); Blood Urea Nitrogen 22 mg/dL (8-24); Bun/Creatinine Ratio 22.2 (12.0-20.0); CO2, Blood 29 mmol/L (21-32); Calcium, Blood 9.4 mg/dL (8.5-10.1); Chloride, Blood 105 mmol/L (98-108); Creatinine, Blood 0.99 mg/dL (0.60-1.20); Globulin, Blood 4.1 g/dL (2.2-4.0); Glomerular Filtration Rate >60 (60-); Glucose, Blood 130 mg/dL (70-99); Potassium, Blood 4.6 mmol/L (3.5-5.5); Sodium, Blood 140 mmol/L (136-145)
--- NOTE | 2019-07-05 04:41 | NUR ---
07/05/19 0440 PALLIATIVE CARE CONSULT CALLED INTO [facility].
--- NOTE | 2019-07-05 07:35 | NUR ---
07/05/19 0615 RN NOTICED THAT PT'S BP WAS LOW THIS AM AT 0323. RN RECHECKED VITALS AND PT DENIES ANY S/S OR DISCOMFORT. BLOOD SUGAR WAS CHECKED WELL. RN PAGED MD NUISANCE ANIMAL DAMAGE CONTROL AGENT TO INFORM ABOUT ABOVE. SEE ORDERS FOR 500 ML BOLUS OF RL. INFORMED PT OF EVENTS AND PLAN OF ACTION. PT AGREEABLE. PT ON ISOLATION FOR HISTORY OF RECENT ADMIT AND ON CONTACT ISOLATION.
--- NOTE | 2019-07-05 16:32 | NUR ---
SHIFT SUMMARY PT AWAKE DURING SHIFT REPORT. PLEASANT, A&O, DENIED NEEDS. HERE RECENTLY FOR SAME SITUATION AND D/C'D ON NETO. PT SOMEWHAT NONCOMPLIANT WITH MEDS AND TX'S. DIABETIC WELL, BUT DOES NOT TAKE HIS MEDICATIONS, MONITOR HIS DIET, OR CHECK HIS CBG'S. SOMEWHAT WEAK AND UNSTEADY; 1P ASSIST. DOES CALL FOR ASSIST TO BTM NEEDED. NO C/O PAIN. DOES NOT LIKE WEARING CONTINOUS OXIMETRY, BUT SO FAR COMPLIANT. LUNGS T/O WITH INSP/EXP WHEEZES. VISITORS TO TODAY. NO FURTHER NEEDS. CALL LT IN REACH.
--- NOTE | 2019-07-06 06:26 | NUR ---
SHIFT SUMMARY LYING IN SEMI FOWLERS WITH EYES CLOSED. RESTED WELL WITH CPAP IN PLACE. C/O "FEELING STUFFY", AND REQUESED A BEATHING TREATMENT. HAS CONTINUED TO ASK FOR ORANGE JUICE X2 THIS SHIFT, HAS BEEN DENIED BY NURSING. HAD REQUESTED A HGB A1C TEST TO BE RAN ON HIM, TEJAL NOTED THAT ONE HAD BEEN RUN ON 07/04/19. RESULTS PRINTED OFF AND GIVEN TO PT. DENIES FURTHER NEEDS AT THIS TIME. SAFETY MEAURES IN PLACE. WILL GIVE HAND OFF TO ONCOMING SHIFT USING SBAR.
--- NOTE | 2019-07-06 15:43 | NUR ---
SHIFT SUMMARY: PT IS A/O X 4 WITH NO C/O PAIN. HE IS PLESANT AND COOPERATIVE WITH HIS CARE NEEDS. LUNGS ARE CLEAR THROUGHOUT AND HE HAS NO S/S OF RESP DISTRESS. PT CONTINUES TO WORK WITH RT FOR BREATHING TX. CBGS HAVE BEEN COVERED WITH SLIDING SCALE ORDERED AND HE HAS NO S/S OF HYPER/HYPO GLUCEMIA. PT USES [facility] AT THE BEDSIDE FOR VOIDING. PT HAS A GOOD APPETITE. PT IS ABLE TO MAKE HIS NEEDS KNOWN AND CALLS FOR HELP WHEN NEEDED. HE IS RESTING IN BED WATCHING TV AND HAS HIS CALL LIGHT IN REACH.
--- NOTE | 2019-07-07 05:02 | NUR ---
SHIFT SUMMARY NO ACUTE CHANGES TO REPORT OVERNIGHT. PT REPORTS THAT HIS BREATHING HAS IMPROVED BUT STATES HE IS NOT BACK TO BASELINE. LUNGS WITH SLIGHT WHEEZE UPON AUSCULTATION. RESP APPEAR E/U ON 3L NC. NON PRODUCTIVE COUGH. PT DENIES PAIN OR NEEDS T/O THE NIGHT. IV SOLUMEDROL PER ORDERS, BREATHING TREATMENTS ORDERED. BED IN LOWEST POSITION, CALL LIGHT WITHIN REACH. WILL CONTINUE TO MONITOR AND REPORT TO ONCOMING RN.
--- NOTE | 2019-07-07 16:25 | NUR ---
SHIFT SUMMARY: PT HAS BEEN A/O X 4 WITH NO C/O PAIN OR DISCOMFORT. LUNGS ARE CLEAR WITH NO S/S OF RESPIRATORY DISTRESS. PT CONTINUES TO WORK WITH RT AND IS RECEIVING BREATHING TX. PT USES THE URINAL AT THE BEDSIDE. PT HAS BEEN RESTING IN BED WATCHING TV ALL DAY. HE IS ABLE TO MAKE HIS NEEDS KNOWN AND CALLS FOR HELP WHEN NEEDED.
--- NOTE | 2019-07-08 04:42 | NUR ---
SHIFT SUMMARY NO ACUTE CHANGES THIS SHIFT. PT HAS WORN HIS O2 PRN THIS SHIFT. SATS ABOVE 90% ON RA. LUNGS CLEAR UPON AUSCULTATION, NON PRODUCTIVE COUGH. CONITINUED IV SOLUMEDROL ORDERED. INDEPENDENT IN THE ROOM. VITALS STABLE, PT ANXIOUSLY AWAITING DISCHARGE.
[2019-07-08] MEDS ORDERED: Prednisone10 MG PO (11:59)
--- NOTE | 2019-07-08 12:58 | NUR ---
DISCHARGE SUMMARY GENARO DISCHARGING VIA WC WITH FRIEND TO GO TO HIS HOME. MEDS REVIEWED AND PAPERWORK GONE OVER. LIVING WITH COPD PACKET GIVEN. PIV REMOVED. MEDS FAXED TO PHARMACY. DENIED PAIN. HAS OXYGEN AT HOME. DC PACKET GIVEN
== END 2019-07-08 13:08 | disposition home or self-care (01) | DRG 191 ==
LOC: ER 20:35 → MEDS 22:27 → ENPENDDIS 07-08 11:56 → MEDS 07-08 13:08
PROVIDERS: Emergency Medicine; ADMIT Internal Medicine
DX: J44.1 Chronic obstructive pulmonary disease with (acute) exacerbation (principal); J96.11 Chronic respiratory failure with hypoxia; I10 Essential (primary) hypertension; E78.5 Hyperlipidemia, unspecified; E11.9 Type 2 diabetes mellitus without complications; K21.9 Gastro-esophageal reflux disease without esophagitis; G89.29 Other chronic pain; M54.9 Dorsalgia, unspecified; N40.0 Benign prostatic hyperplasia without lower urinary tract symptoms; G47.33 Obstructive sleep apnea (adult) (pediatric); F32.9 Major depressive disorder, single episode, unspecified; E66.9 Obesity, unspecified; Z99.81 Dependence on supplemental oxygen; Z87.891 Personal history of nicotine dependence; Z88.0 Allergy status to penicillin; Z79.82 Long term (current) use of aspirin; Z79.899 Other long term (current) drug therapy
CPT/HCPCS: 71045; 80053; 82947; 83036; 84145; 84484; 85025; 87081; 93005; 93010; 94640; 94644; 94660; 94762; 96361; 96374; 99285-25; C9113; J1650; J1815; J2920; J2930; J7030; J7120